=== PATIENT | male | born 1945 | race Caucasian/White ===

== ENCOUNTER → 2020-06-20 13:48 | Outpatient (CLI) | payer MEDICARE, OTHER, SELFPAY ==
--- NOTE | 2020-06-20 | DI.MRI.S_ITS ---
PROCEDURE: MR BRACHIAL PLEXUS WWO CON INDICATIONS: Brachial plexus disorders TECHNIQUE: Noncontrast axial, coronal, and sagittal T1 spin echo and STIR through the affected brachial plexus region. Additional axial T1 spin echo and coronal T2 fast spin echo acquired through both brachial plexuses with a large [id number]. Optional contrast may be given, followed by axial, coronal, and sagittal T1 spin echo with fat saturation through the affected side. COMPARISON: None. FINDINGS: Image quality: Excellent. Brachial plexus: The C5-T1 origins of the brachial plexus appear normal, without pseudomeningoceles to suggest nerve root avulsion. Within the scalene triangle, costoclavicular space, and pectoralis minor space, the visualized trunks and/or cords of the brachial plexus demonstrate normal morphology and signal. Soft tissues: No supraclavicular adenopathy by size criteria. Superior pleural surfaces are normal in thickness. Jugular veins and carotid arteries appear normal in size. Bones: Marrow demonstrates normal overall signal. Moderate degenerative changes can be seen of the cervical spine, particularly inferiorly. IMPRESSION: No significant brachial plexus abnormality is seen. Dictated by: Augusto Gr M.D. on 06/20/2020 at 14:21 Approved by: Augusto Gr M.D. on 06/20/2020 at 14:23
== END ==
PROVIDERS: PCP Internal Medicine; Referring Provider Psychiatry & Neurology Neurology; Visit Provider Psychiatry & Neurology Neurology
DX: G54.0 Brachial plexus disorders (principal)
CPT/HCPCS: 71552

== ENCOUNTER → 2020-10-19 15:20 | Outpatient (CLI) | payer MEDICARE, OTHER, SELFPAY | PROVIDERS: PCP Internal Medicine; Visit Provider Specialist | DX: N39.0 Urinary tract infection, site not specified (principal); D41.4 Neoplasm of uncertain behavior of bladder | CPT/HCPCS: 52000; 81002; 87086; 99215 ==

== ENCOUNTER → 2020-10-27 08:05 | Outpatient (CLI) | payer MEDICARE, OTHER, SELFPAY ==
[2020-10-27 08:46] LABS: COVID19 -Nasal RAPID Negative (Negative)
== END ==
PROVIDERS: PCP Internal Medicine; Visit Provider Specialist
DX: Z20.822 Contact with and (suspected) exposure to COVID-19 (principal)
CPT/HCPCS: 87635; C9803

== ENCOUNTER 2020-10-30 09:59 | Day surgery (SDC) | payer MEDICARE, OTHER, SELFPAY ==
[2020-10-23 15:20] VITALS: BMI 25.2
[2020-10-30] VITALS (9 sets, daily range): BP systolic 111–147; BP diastolic 51–81; PULSE 61–89; RESP 11–16; TEMP 36.1–37; O2SAT 92–100; BMI 25.2
--- NOTE | 2020-10-30 | PATH_ITS ---
[facility] Accession Number: [id number] . 01 Material submitted: . bladder - POSTERIOR BLADDER WALL NEOPLASM . 01 Clinical history: . SDC . 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 Tumor extent: Invades muscularis propria. Lymphovascular invasion: Present. Tumor configuration: Papillary. Muscularis propria: Present. MRV 11/02/2020 1410 Local . 02 Comment: As part of routine water quality technician, Dr. Eagle also reviewed this case and agrees with the interpretation. . 02 Electronically signed: . Jennifer Eddy MD, Pathologist NPI- [id number] . 01 Gross description: . POSTERIOR BLADDER WALL NEOPLASM: Received in formalin are multiple fragment(s) of alcantara, soft tissue measuring 4.0 x 3.0 x 1.0 cm in aggregate submitted entirely in 2 cassette(s) /LISBET 10/31/2020 0501 Local . 02 Microscopic: . An immunohistochemical stain for D2-40 was performed to evaluate for lymphovascular invasion. The control stain showed appropriate reactivity. . The D2-40 stain highlights occasional small vessels containing neoplastic cells consistent with lymphovascular invasion. . * This test was developed and its performance characteristics determined by [facility]. It has not been cleared or approved by the U.S. Food and Drug Administration. The FDA has determined that such clearance or approval is not necessary. This test is used for clinical purposes. It should not be regarded as investigational or for research. . 02 Pathologist provided ICD-10: D41.4 . 02 CPT . 921894, [id number] Performed at: 01 [facility] [address] [place] [address] [facility] [place] [id number] MD Marquis Flores MD Phone: [phone] Performed at: 02 [facility] [address] [place] [id number] MD Jennifer Eddy MD Phone: [phone]
--- NOTE | 2020-10-30 | PATH_ITS ---
Note [facility] Accession Number: [id number] TESTS RESULT FLAG UNITS REF RANGE LAB Clinician Provided Cytology Information No. of containers..01 Urine Bottle URINE DIAGNOSIS: URINE INCONCLUSIVE. ATYPICAL UROTHELIAL CELLS. Pathologist ICD10: R82.89 Kobi Ruelas MD, Pathologist NPI- [id number] Trent Serrano, Gasoline Finisher ([facility]) 01 30 CC, YELLOW, HAZY RECEIVED: FRESH IN ORANGE CAP CONTAINER. /VDU 10/31/2020 0714 Local FLAG LEGEND: L-Low Normal,H-High Normal,LL-Alert Low,HH-Alert High <-Panic Low,>-Panic High,A-Abnormal,AA-Critical Abnormal Performed at: 01 =[facility] [address], [place] [address] Marquis Flores MD, Performed at: 01 [facility] [address], [place], [place] [id number] MD Marquis Flores MD Phone: [phone]
[2020-10-30] MEDS: BELLADONNA/OPIUM SUPPOSITORIES 1 EACH PR (10:20)
--- NOTE | 2020-10-30 11:30 | PM.PREOP ---
Pre-operative Note Interval Note History & Physical reviewed/Exam performed by Physician: Yes Changes to H&P: No
[2020-10-30] MEDS: LACTATED RINGERS 1,000 ML 25 ML IV (12:00)
[2020-10-30] MEDS: CEFAZOLIN 1 GM VIAL 2 GM IV (12:18)
--- NOTE | 2020-10-30 12:34 | SUR.OPER ---
Lithotomy on padded OR bed, head on pillow, arms secured on padded arm boards at <90 degrees abduction. Legs secured in padded yellow fins stirrups.
--- NOTE | 2020-10-30 13:42 | PM.OP.1 ---
Operative Date/Time/Diagnoses Date of procedure: 10/30/20 Time of procedure: 13:42 Pre-op diagnosis: 1. Bladder neoplasm Post-op diagnosis: same Procedure & Clinicians Procedure: 1. Transurethral resection of bladder tumors (2-5 cm). Same procedure as scheduled: Yes Indications: Multifocal, overlapping sites, mixed solid and papillary bladder neoplasm. Click Yes if Unassisted: Yes Anesthesia Type: General Operative Notes Findings: 1. Urethra-normal caliber with exception of a wide annular stricture at about the junction of the bulbar and penile segment. It was negotiated with the resectoscope without difficulty. 2. External sphincter coapted with normal overlying urothelium. 3. Cxitojzt-9-0.5 cm length with moderate lateral lobe hyperplasia. 4. Bladder-multifocal papillary and solid neoplasm occupying approximately 40% of total bladder surface area. Extent was from approximately the midline, then right word and posteriorly and extended approximately 2/3 of the posterior wall and approximately half way up the right lateral wall. The right ureteral orifice was not identified prior to resection nor after. Closure Type: not applicable Specimen(s): other (Bladder neoplasm) Applied: catheter (Number 22 Green[place]ic, 2 way hematuria catheter.) Estimated Blood Loss (mL): 5 Blood products transfused: none Tourniquet time (min): 0 Procedure in detail: The patient was positioned in supine and was administered general anesthesia. He was then repositioned semi lithotomy and the lower abdomen, genitalia, and groin were then prepped and draped in sterile fashion. The resectoscope was then inserted lower urinary track and advanced proximally under direct visualization with the findings as described above. Careful and meticulous TUR resection of the neoplasms was then undertaken with the resecting loop. Some areas were resected with the loop in other areas that were more papillary and superficially spreading were electric cautery destroyed with superficial passes. These areas were primarily anterior to the right trigone and of short distance of the right anterolateral wall. Hemostasis was obtained with electric cautery. All chips were evacuated with the like or manually with the resecting loop. Final inspection indicated excellent hemostasis and no visual evidence of residual tumor. The bladder was left partially filled and all instrumentation was removed. A 22 Greenlandic, 30 cc, 2 way hematuria catheter was then inserted in the lower urinary tract the balloon inflated to 15 cc and irrigated clear with sterile saline. The patient was then repositioned in supine, was awakened, and transferred to a gurney for transport to PACU. Plan for intravesical mitomycin was canceled due to extend of, and thinning of the bladder wall. Complications: none Post-operative Condition: stable Disposition: PACU Plan for aftercare: Discharge home.
[2020-10-30] MEDS: OXYCODONE IR 5 MG TABLET PO (14:04)
[2020-10-30] MEDS: MEPERIDINE 50 MG/ML INJ 12.5 MG IV (14:18)
[2020-10-30] MEDS: LACTATED RINGERS 1,000 ML 42 ML IV (14:18)
--- NOTE | 2020-10-30 16:05 | SUR.PHASEII ---
Patient noted to have rash to groin, abdomen, and knees. Dr. Crenshaw notified and stated that patient was noted to have it when draping in the OR. Physician came and visualized rash and stated that it was unchanged; Stated that patient may discharge and no other new orders noted related to rash.
== END 2020-10-30 16:25 | disposition home or self-care (01) ==
PROVIDERS: PCP Internal Medicine; Referring Provider Specialist; Visit Provider Specialist
PROC: 0TBB8ZZ Excision of Bladder, Via Natural or Artificial Opening Endoscopic (ICD-10-PCS; CPT 52235; principal; 2020-10-30 11:15)
DX: D41.4 Neoplasm of uncertain behavior of bladder (principal); N40.0 Benign prostatic hyperplasia without lower urinary tract symptoms; E78.5 Hyperlipidemia, unspecified; I10 Essential (primary) hypertension
CPT/HCPCS: 52235; 82962; J0690; J2175; J2405; J2704; J3010; J9280

== ENCOUNTER → 2020-11-09 15:19 | Outpatient (CLI) | payer MEDICARE, OTHER, SELFPAY ==
--- NOTE | 2020-11-09 15:22 | DI.CT.S_ITS ---
PROCEDURE: CT KIDNEY URETER BLADDER (KUB) INDICATIONS: 75-year-old with history of bladder carcinoma TECHNIQUE: Axial sections were acquired from the lung bases to the pubic symphysis. Coronal and sagittal reformats were performed. For radiation dose reduction, the following was used: automated exposure control, adjustment of mA and/or kV according to patient size. COMPARISON:[facility], , CT IVP, 07/05/2020, 8:14. FINDINGS: Lower thorax: The lung bases are clear. Heart size normal. No hiatal hernia. Liver: Normal in size and attenuation. No contour deformity present. Biliary system: Cholecystectomy. No intra or extrahepatic bile duct dilation. Pancreas: Unremarkable without mass or inflammation evident. Spleen: Normal in size and density. Adrenals: Normal morphology and density. Reproductive system: Mild prostatic hypertrophy. Prostate measures 5.9 x 3.8 by 4.9 cm Urinary system: Asymmetric thickening of the right lateral and superior bladder wall is somewhat irregular and measures up to 8 mm in thickness, consistent with given history of carcinoma. Additionally, there is a now moderate right hydronephrosis and hydroureter without evidence of calcified obstructing lesion. Both kidneys appropriate in size and attenuation. Gastrointestinal system: The bowel appears unremarkable with no evidence of bowel obstruction or inflammation. The stomach appears unremarkable. Multiple diverticula arise from the sigmoid colon without evidence of diverticulitis. Appendix: No findings to suggest acute appendicitis. Peritoneal spaces: No mesenteric or retroperitoneal adenopathy. No free air. No free fluid. Vasculature: The IVC, aorta and iliac vasculature are unremarkable. Musculoskeletal: Normal bone mineralization. No acute fractures. Abdominal wall intact without evidence of ventral or inguinal hernias. Please note, lack IV contrast precludes definitive evaluation of solid and vascular structures, particularly for neoplasm. IMPRESSION: 1. Bladder wall irregular thickening slightly more pronounced compared to the prior exam, consistent with progressive bladder carcinoma. Additionally, there is now a right-sided hydronephrosis and hydroureter which may reflect involvement of the right ureterovesical junction 2. Incidental diverticulosis without diverticulitis, cholecystectomy, hypertrophic prostate Approved by: Jake Constantino M.D. on 11/09/2020 at 16:44
== END ==
PROVIDERS: PCP Internal Medicine; Referring Provider Specialist; Visit Provider Specialist
DX: D41.4 Neoplasm of uncertain behavior of bladder (principal); N13.30 Unspecified hydronephrosis; K57.30 Diverticulosis of large intestine without perforation or abscess without bleeding; Z87.442 Personal history of urinary calculi
CPT/HCPCS: 51798; 74176

== ENCOUNTER → 2020-12-06 08:56 | Outpatient (CLI) | payer MEDICARE, OTHER, SELFPAY ==
--- NOTE | 2020-12-06 08:58 | DI.RAD.S_ITS ---
PROCEDURE: XR KUB INDICATIONS: Dislodged right neph tube TECHNIQUE: One view of the abdomen acquired. COMPARISON: [facility], XA, SI NEPHROSTOMY, 11/18/2020, 12:45. [facility], CT, CT ABDOMEN PELVIS WITHOUT CONTRAST, 11/18/2020, 9:13. FINDINGS: Surgical changes and devices: A left percutaneous nephrostomy tube is seen with pigtail catheter projecting over the left kidney. A right ureteral stent is present in expected position. An additional catheter is seen projecting over the right flank/right abdominal wall that may represent a dislodged right-sided nephrostomy tube. Cholecystectomy clips are present. Bowel: Bowel gas pattern is normal. Soft tissues: No suspicious abdominal calcifications. Visualized solid organ contours appear normal in size. Bones: No suspicious bony lesions. Mild degenerative changes in the spine. IMPRESSION: 1. Left percutaneous nephrostomy tube and right ureteral stent are seen in expected positions. 2. Additional percutaneous right-sided nephrostomy tube has been completely dislodged. Dictated by: Joel Hansen M.D. on 12/06/2020 at 9:59 Approved by: Joel Hansen M.D. on 12/06/2020 at 10:07
[2020-12-06] MEDS: NEOMYCIN/POLYMYXIN/BACITRA UD OINT 1 EACH TOP (10:29)
[2020-12-06 11:12] LABS: BUN Creatinine Ratio 18.4 (6-22); Blood Urea Nitrogen 18 mg/dL (9-20); Calcium 9.5 mg/dL (8.4-10.2); Carbon Dioxide 24 mmol/L (22-32); Chloride 104 mmol/L (98-107); Estimated Glomerular Filt Rate > 60.0 mL/min (>60); Glucose 114 mg/dL (80-110); HEMOLYSIS < 15 (0-50); Potassium 4.1 mmol/L (3.4-5.1); Sodium 139 mmol/L (137-145)
== END ==
PROVIDERS: PCP Internal Medicine; Referring Provider Specialist; Visit Provider Specialist
DX: T83.022A Displacement of nephrostomy catheter, initial encounter (principal); C67.9 Malignant neoplasm of bladder, unspecified; N13.9 Obstructive and reflux uropathy, unspecified; N40.0 Benign prostatic hyperplasia without lower urinary tract symptoms; R31.0 Gross hematuria; Z87.442 Personal history of urinary calculi; Z93.6 Other artificial openings of urinary tract status
CPT/HCPCS: 36415; 74018; 80048; 99215

== ENCOUNTER → 2021-08-02 14:03 | Outpatient (CLI) | payer MEDICARE, OTHER, SELFPAY ==
--- NOTE | 2021-08-02 | DI.MG.S_ITS ---
MALE BILATERAL DIGITAL DIAGNOSTIC MAMMOGRAM 3D/2D: 08/02/2021 CLINICAL: Bilateral palpable masses in patient with recent diagnosis of bladder and prostate cancer. No prior exams were available for comparison. There is subareolar focal asymmeries consistent with gynecomastia in both breasts that correlates with clinical concern, palpable abnormality, and reported tenderness. No significant masses, calcifications, or other findings are seen in either breast. IMPRESSION: INCOMPLETE: NEEDS ADDITIONAL IMAGING EVALUATION Likely bilateral gynecomastia correlating with area of palpable concern. An ultrasound is recommended for further evaluation and is scheduled to immediately follow this examination. This exam was interpreted at Station ID: [id number]. NOTE: For mammograms, a report in lay terms will be sent to the patient. Approximately 15% of breast malignancies will not be visualized mammographically. In the management of a palpable breast mass, a negative mammogram must not discourage biopsy of a clinically suspicious lesion. Electronically Signed By: Cosme Castro M.D. aty/:08/02/2021 16:03:40 ACR BI-RADS Category 0: Incomplete [id number]
--- NOTE | 2021-08-02 14:05 | DI.US.S_ITS ---
LIMITED ULTRASOUND OF LEFT BREAST: 08/02/2021 CLINICAL: Bilateral masses. No prior exams were available for comparison. Color flow and real-time ultrasound of the left breast retroareolar were performed. James scale images of the real-time examination were reviewed. There is gynecomastia in the left breast in the sub-areolar depth that correlates with mammography, clinical concern, palpable abnormality, and reported tenderness. IMPRESSION: BENIGN There is no sonographic evidence of malignancy. Left gynecomastia; recommend clinical follow up for persistent or worsening symptoms, or development of any clinically suspicious findings. Findings and recommendations were conveyed to the patient during today's evaluation. This exam was interpreted at Station ID: [id number]. Electronically Signed By: Cosme Castro M.D. aty/:08/02/2021 16:06:20 Ultrasound BI-RADS: 2 Benign
--- NOTE | 2021-08-02 14:05 | DI.US.S_ITS ---
LIMITED ULTRASOUND OF RIGHT BREAST: 08/02/2021 CLINICAL: Bilateral masses. No prior exams were available for comparison. Color flow and real-time ultrasound of the right breast retroareolar were performed. James scale images of the real-time examination were reviewed. There is gynecomastia in the right breast in the sub-areolar depth that correlates with mammography, clinical concern, palpable abnormality, and reported tenderness. IMPRESSION: BENIGN There is no sonographic evidence of malignancy. Right breast gynecomastia; recommend clinical follow up for persistent or worsening symptoms, or development of any clinically suspicious findings. Findings and recommendations were conveyed to the patient during today's evaluation. This exam was interpreted at Station ID: [id number]. Electronically Signed By: Cosme Castro M.D. aty/:08/02/2021 16:05:01 Ultrasound BI-RADS: 2 Benign
== END ==
PROVIDERS: PCP Internal Medicine; Referring Provider Physician Assistant; Visit Provider Physician Assistant
DX: R92.8 Other abnormal and inconclusive findings on diagnostic imaging of breast (principal); N62 Hypertrophy of breast; C67.9 Malignant neoplasm of bladder, unspecified; C61 Malignant neoplasm of prostate
CPT/HCPCS: 76642; 77066; G0279